=== PATIENT | female | born 1940 | race Caucasian/White ===

== ENCOUNTER 2020-05-05 12:15 | Inpatient (IN) ==
[2020-05-05] MEDS ORDERED: SODIUM CHLORIDE 0.9% 1000ML 1,000 ML IV ONE (12:50)
[2020-05-05 13:08] LABS: Basophils # (auto) 0.03 K/uL (0-0.2); Basophils % (auto) 0.5 %; Eosinophils # (auto) 0.16 K/uL (0-0.5); Eosinophils % (auto) 2.4 %; Hematocrit (blood only) 43.7 % (37-47); Hemoglobin 15.5 g/dL (12.0-16.0); Immature Granulocytes # (auto) 0.01 K/uL (0.00-0.02); Immature Granulocytes % (auto) 0.2 %; Lymphocytes # (auto) 1.78 K/uL (1.2-3.4); Lymphocytes % (auto) 26.7 %; Mean Corpuscular Hemoglobin 32.8 pg (25-34); Mean Corpuscular Hgb Conc 35.5 g/dL (32-36); Mean Corpuscular Volume 92.4 fL (80-100); Mean Platelet Volume 12.4 fL (7.4-10.4); Monocytes # (auto) 0.42 K/uL (0.11-0.59); Monocytes % (auto) 6.3 %; Neutrophils # (auto) 4.26 K/uL (1.4-6.5); Neutrophils % (auto) 63.9 %; Platelet Count 157 K/uL (130-400); RDW Coefficient of Variation 12.2 % (11.5-14.5); RDW Standard Deviation 41.4 fL (36.4-46.3); Red Blood Count 4.73 M/uL (4.2-5.4); White Blood Count 6.66 K/uL (4.8-10.8)
[2020-05-05 13:21] LABS: Partial Thromboplastin Ratio 0.9; Partial Thromboplastin Time 24.2 Seconds (21.0-31.0); Prothrombin Time 10.9 Seconds (9.0-12.0)
--- NOTE | 2020-05-05 13:23 | XRay Report ---
XR chest 1V portable CLINICAL HISTORY: SEPSIS COMPARISON STUDY: No previous studies for comparison. FINDINGS: The heart is mildly enlarged. There is no failure. There is no focal pulmonary consolidatio n. There are no pleural effusions. A linear opacity at the left lung base likely represents subsegmen lisa atelectasis.[ IMPRESSION: No active disease in the chest. ACT 112: Negative or not required by law. Electronically signed by: James Almendarez M.D. 05/05/2020 1:21 PM
[2020-05-05 13:24] LABS: Base Excess VBG 3.1 mEq/L; Oxygen Saturation VBG 61.3 %; pH VBG 7.39 (7.36-7.41)
[2020-05-05 13:25] LABS: Alanine Aminotransferase 33 U/L (12-78); Albumin Globulin Ratio 0.9 (0.9-2); Albumin Level 3.7 gm/dl (3.4-5.0); Alkaline Phosphatase 207 U/L (45-117); Aspartate Aminotransferase 21 U/L (15-37); BUN Creatinine Ratio 18.4 (10-20); Bilirubin,Total 0.9 mg/dl (0.2-1); Blood Urea Nitrogen 38 mg/dl (7-18); Calcium 9.5 mg/dl (8.5-10.1); Carbon Dioxide 28 mmol/L (21-32); Chloride 95 mmol/L (98-107); Creatinine Clr Calc Pharmacy 26.3 ml/min; Est GFR (African American) 26.3; Est GFR (Non-African American) 22.7; Globulin 3.9 gm/dl (2.5-4.0); Glucose 673 mg/dl (70-99); Potassium 4.2 mmol/L (3.5-5.1); Sodium 133 mmol/L (136-145); Total Protein 7.6 gm/dl (6.4-8.2); Troponin I < 0.015 ng/ml (0-0.045)
[2020-05-05 13:31] LABS: iSTAT Creatinine 1.6 mg/dl (0.6-1.3); iSTAT Hemoglobin 14.6 g/dl (12.0-16.0); iSTAT Ionized Calcium 1.16 mmol/l (1.12-1.32); iSTAT Potassium 4.3 mmol/L (3.3-5.0)
--- NOTE | 2020-05-05 13:40 | CT Scan Report ---
CT head/brain wo con CLINICAL HISTORY: 79 years-old Female with ams. Acutely altered mental status TECHNIQUE: Multiple axial CT images of the head were obtained without contrast. A dose lowering tech nique was utilized adhering to the principles of ALARA. CT DOSE: 601.98 mGy.cm COMPARISON: None. FINDINGS: No acute intracranial hemorrhage, midline shift, intracranial mass, hydrocephalus, territorial ischem ia or abnormal extra-axial collection. Age-related involutional changes. Patchy white matter hypodens ities suggest chronic microvascular ischemic disease. The calvarium is intact. Bilateral lens replacement. The paranasal sinuses, mastoid air cells, and mi ddle ear cavities are clear. IMPRESSION: No acute intracranial abnormality. ACT 112: Negative or not required by law. The above report was generated using voice recognition software. It may contain grammatical, syntax o r spelling errors. Electronically signed by: Wei Valencia M.D. 05/05/2020 1:38 PM
--- NOTE | 2020-05-05 13:52 | Emergency Department Note ---
History of Present Illness General Chief complaint: Hyperglycemia Stated complaint: Hyperglycemia/AMS Time Seen by Provider: 05/05/20 12:37 History of Present Illness Provider complaint: Altered mental status hyperglycemia Onset (ago): day(s) 1 Location: head Maximum Pain Intensity: 5 Current Pain Intensity: 0 Associated symptoms: + confusion 79-year-old female presents to the emergency department for hyperglycemia and altered mental status. Per EMS patient was found disoriented and walking around [facility]. Patient states she was there with her family who supposed to get a procedure done agrees with and then she became confused and was not sure where she was. Patient reported a mild headache that is since resolved. She denies any fevers, chest pain, difficulty breathing, falls, hematuria, dysuria melena hematochezia loss of taste or smell. Home Medications Home Medications Medication Instructions Recorded Confirmed Type albuterol sulfate [Ventolin HFA] 2 puff INHALATION Q4H PRN 05/05/20 05/05/20 History aspirin [Aspirin Low Dose] 81 mg PO DAILY 05/05/20 05/05/20 History atorvastatin 40 mg PO DAILY 05/05/20 05/05/20 History clotrimazole 1 appful VAGINAL DAILY 05/05/20 05/05/20 History fluticasone propion-salmeterol 1 inh INHALATION Q12H 05/05/20 05/05/20 History fluticasone propionate [Flonase 2 spray INTRANASAL DAILY 05/05/20 05/05/20 History Allergy Relief] furosemide 60 mg PO DAILY 05/05/20 05/05/20 History gabapentin 300 mg PO TID 05/05/20 05/05/20 History insulin glargine [Lantus Solostar 30 unit SUBCUT 05/05/20 05/05/20 History U-100 Insulin] liraglutide [Victoza 3-Sharath] 1.8 mg SUBCUT DAILY 05/05/20 05/05/20 History lisinopril 40 mg PO DAILY 05/05/20 05/05/20 History loratadine 10 mg PO DAILY 05/05/20 05/05/20 History metoprolol succinate 25 mg PO DAILY 05/05/20 05/05/20 History montelukast 10 mg PO HS 05/05/20 05/05/20 History omeprazole 20 mg PO DAILY 05/05/20 05/05/20 History paroxetine HCl 10 mg PO QAM 05/05/20 05/05/20 History Allergies Allergy/AdvReac Type Severity Reaction Status Date / Time latex AdvReac Unknown Unverified 05/05/20 14:13 Past Med/Surg History Medical History (Updated 05/05/20 @ 17:03 by Alexandra Thomason PA-C) Accidental drug overdose Asthma CKD (chronic kidney disease) stage 3, GFR 30-59 ml/min HLD (hyperlipidemia) HTN (hypertension) IDDM (insulin dependent diabetes mellitus) Obesity IAS on CPAP Surgical History History of appendectomy History of laminectomy S/P knee replacement Family History Other Depression Kidney disease Social History Smoking Status: Never smoker Feels Safe at Home: Yes Review of Systems A total of 10 systems reviewed and were otherwise negative Physical Exam Vital Signs Vital Signs - 24 hr 05/05/20 12:23 05/05/20 12:27 05/05/20 12:36 Temperature 36.9 C Temperature Source Oral Pulse Rate 88 Pulse Rate from SpO2 Sensor 88 Respiratory Rate 20 18 Respiratory Effort / Characteristics Non-Labored Spontaneous Respiratory Depth Normal Respiratory Pattern Regular Blood Pressure 112/68 130/79 Blood Pressure Mean 85 96 Blood Pressure Position Sitting Pulse Oximetry 93 92 96 Oxygen Delivery Method Room Air Room Air Nasal Cannula Oxygen Flow Rate 88 Sepsis Recent Fever Within 48 Hours No Sepsis New/Unexplained Change in Mental Status Yes Sepsis Action Taken by Nursing No Action Required Oxygen Flow Rate - Titration 2 05/05/20 13:01 05/05/20 13:38 05/05/20 13:49 Temperature Temperature Source Pulse Rate 73 77 Pulse Rate from SpO2 Sensor 78 Respiratory Rate 16 17 Respiratory Effort / Characteristics Non-Labored Respiratory Depth Respiratory Pattern Blood Pressure 127/57 L 135/65 Blood Pressure Mean 69 91 Blood Pressure Position Pulse Oximetry 95 98 96 Oxygen Delivery Method Nasal Cannula Nasal Cannula Oxygen Flow Rate 2 2 Sepsis Recent Fever Within 48 Hours Sepsis New/Unexplained Change in Mental Status Sepsis Action Taken by Nursing Oxygen Flow Rate - Titration 05/05/20 14:02 05/05/20 14:31 05/05/20 15:43 Temperature Temperature Source Pulse Rate 77 72 81 Pulse Rate from SpO2 Sensor 77 71 79 Respiratory Rate 20 15 19 Respiratory Effort / Characteristics Respiratory Depth Respiratory Pattern Blood Pressure 96/54 L 91/45 L 117/87 Blood Pressure Mean 77 74 104 Blood Pressure Position Pulse Oximetry 93 95 95 Oxygen Delivery Method Nasal Cannula Oxygen Flow Rate 2 Sepsis Recent Fever Within 48 Hours Sepsis New/Unexplained Change in Mental Status Sepsis Action Taken by Nursing Oxygen Flow Rate - Titration 05/05/20 16:01 Temperature Temperature Source Pulse Rate 75 Pulse Rate from SpO2 Sensor 74 Respiratory Rate 16 Respiratory Effort / Characteristics Respiratory Depth Respiratory Pattern Blood Pressure 143/68 H Blood Pressure Mean 117 Blood Pressure Position Pulse Oximetry 99 Oxygen Delivery Method Oxygen Flow Rate Sepsis Recent Fever Within 48 Hours Sepsis New/Unexplained Change in Mental Status Sepsis Action Taken by Nursing Oxygen Flow Rate - Titration Physical Exam GENERAL: She is oriented to person, place, and time. She appears well-developed and well-nourished. She does not appear distressed. HENT: Exam performed. -Head: Normocephalic and atraumatic. -Right Ear: External ear normal. No mastoid tenderness. -Left Ear: External ear normal. No mastoid tenderness. -Mouth/Throat: The oropharynx is clear and moist. No trismus in the jaw. No dental abscesses or uvula swelling. No oropharyngeal exudate or tonsillar abscesses. EYES: Conjunctivae and EOM are normal. Pupils are equal, round, and reactive to light. Right eye exhibits no discharge. Left eye exhibits no discharge. No scleral icterus. NECK: Normal range of motion. Neck supple. No JVD present. No spinous process tenderness present. No carotid bruit present. No rigidity. No tracheal deviation and normal range of motion present. No Brudzinski's sign and no Kernig's sign noted. CV: Normal rate, regular rhythm, normal heart sounds and intact distal pulses. There is no peripheral edema. Palpable radial pulses bue. PULM/CHEST: Effort normal and breath sounds normal. No respiratory distress. No stridor. She has no wheezes. She has no rales. -Chest Wall: She exhibits no tenderness. ABD: The abdomen is soft. Bowel sounds are normal. She has no distension. No mass is present. There is no tenderness. There is no rebound, no guarding, no Saavedra's sign and no tenderness at McBurney's point. Rovsig negative MUSC/SKEL: Normal range of motion. There is no peripheral edema, tenderness or deformity. LYMPH: No cervical adenopathy. NEURO: She is alert and oriented to person, place, and time. She has normal strength. No cranial nerve deficit or sensory deficit. Coordination and gait normal. GCS eye subscore is 4. GCS verbal subscore is 5. GCS motor subscore is 6. Cerebellar tests wnl. SKIN: Skin is warm and dry. She is not diaphoretic. PSYCH: She has a normal mood and affect. Behavior is normal. Judgment and t hought content normal. Course Course 1237: The patient was evaluated in room C4. A complete history and physical exam was performed. Patient was placed on school bus monitor and found to be hypoxic on room air. 3 L of supplemental oxygen were applied via nasal cannula which improved her oxygen saturation. Cardiac monitoring: An order was placed for continuous cardiac monitoring. The monitor shows a rate of 80 with sinus rhythm 1454: Labs show a creatinine of 2.06. Glucose 673. No evidence of DKA or HHS. Osmolar gap and anion gap are 10 and within normal limits. Patient continues to require supplemental oxygen via nasal cannula. She will be admitted to the [facility] team. Discussed with Alexandra Thomason who stated to admit to Dr. Lucas Administered Medications Sodium Chloride (Nss 1000ml) 1,000 mls @ 125 mls/hr IV .Q8H ROBY Stop: 06/04/20 14:44 Last Admin: 05/05/20 15:38 Dose: 125 mls/hr Documented by: [id number] Discontinued Medications Sodium Chloride (Nss 1000ml) 1,000 mls @ 999 mls/hr IV .Q1H1M ONE Stop: 05/05/20 13:50 Last Infusion: 05/05/20 14:04 Dose: 0 mls/hr Documented by: [id number] Admin: 05/05/20 13:02 Dose: 999 mls/hr Documented by: [id number] Medical Decision Making Laboratory Data Result diagrams: 05/05/20 12:32 05/05/20 12:32 Lab Results 05/05/20 05/05/20 05/05/20 Range/Units 12:32 12:32 12:32 WBC 6.66 (4.8-10.8) K/uL RBC 4.73 (4.2-5.4) M/uL Hgb 15.5 (12.0-16.0) g/dL POC Hgb (12.0-16.0) g/dl Hct 43.7 (37-47) % POC Hct (37-47) % MCV 92.4 (80-100) fL MCH 32.8 (25-34) pg MCHC 35.5 (32-36) g/dL RDW Std Deviation 41.4 (36.4-46.3) fL RDW Coeff of Andrzej 12.2 (11.5-14.5) % Plt Count 157 (130-400) K/uL MPV 12.4 H (7.4-10.4) fL Immature Gran % (Auto) 0.2 % Neut % (Auto) 63.9 % Lymph % (Auto) 26.7 % [place] % (Auto) 6.3 % Eos % (Auto) 2.4 % Baso % (Auto) 0.5 % Neut # (Auto) 4.26 (1.4-6.5) K/uL Lymph # (Auto) 1.78 (1.2-3.4) K/uL [place] # (Auto) 0.42 (0.11-0.59) K/uL Eos # (Auto) 0.16 (0-0.5) K/uL Baso # (Auto) 0.03 (0-0.2) K/uL Immature Gran # (Auto) 0.01 (0.00-0.02) K/uL PT 10.9 (9.0-12.0) Seconds INR 1.0 (0.9-1.1) APTT 24.2 (21.0-31.0) Seconds PTT Ratio 0.9 VBG pH (7.36-7.41) VBG pCO2 (38-50) mmHg VBG pO2 mmHg VBG HCO3 mmol/L VBG O2 Saturation % VBG Base Excess mEq/L Barometric Pressure mm/Hg POC Sodium (135-144) mmol/L Sodium 133 L (136-145) mmol/L POC Potassium (3.3-5.0) mmol/L Potassium 4.2 (3.5-5.1) mmol/L POC Chloride (101-112) mmol/L Chloride 95 L (98-107) mmol/L Carbon Dioxide 28 (21-32) mmol/L POC Total CO2 (24-31) mmol/L Anion Gap 10.0 (3-11) POC Anion Gap (16-25) mmol/L POC BUN (7-18) mg/dl BUN 38 H (7-18) mg/dl Creatinine 2.06 H (0.6-1.2) mg/dl POC Creatinine (0.6-1.3) mg/dl Est Cr Clr Drug Dosing 26.3 ml/min Est GFR ( Amer) 26.3 Est GFR (Non-Af Amer) 22.7 BUN/Creatinine Ratio 18.4 (10-20) Glucose 673 H* (70-99) mg/dl POC Glucose (70-99) mg/dl POC Glucose (other) (70-99) mg/dl Osmolality (280-300) mOsm/kg Lactate (0.4-2.0) mmol/L Calcium 9.5 (8.5-10.1) mg/dl POC Ioniz Calcium Livan (1.12-1.32) mmol/l Magnesium 2.0 (1.8-2.4) mg/dl Total Bilirubin 0.9 (0.2-1) mg/dl AST 21 (15-37) U/L ALT 33 (12-78) U/L Alkaline Phosphatase 207 H (45-117) U/L Ammonia (11-32) umol/L Troponin I < 0.015 (0-0.045) ng/ml Total Protein 7.6 (6.4-8.2) gm/dl Albumin 3.7 (3.4-5.0) gm/dl Globulin 3.9 (2.5-4.0) gm/dl Albumin/Globulin Ratio 0.9 (0.9-2) Beta-Hydroxybutyric Acd 2.20 (0.2-2.81) mg/dl Procalcitonin (0-0.5) ng/ml Urine Color Urine Appearance (Clear) Urine pH (4.5-7.5) Ur Specific [place] (1.000-1.030) Urine Protein (Negative) Urine Glucose (UA) (Negative) Urine Ketones (Negative) Urine Blood (Negative) Urine Nitrite (Negative) Urine Bilirubin (Negative) Urine Urobilinogen (Negative) Ur Leukocyte Esterase (Negative) Urine WBC (Auto) (0-5) /hpf Urine RBC (Auto) (0-4) /hpf U Hyaline Cast (Auto) (0-5) /lpf U Epithel Cells (Auto) (0-5) /lpf Urine Bacteria (Auto) (Negative) Urine Opiates Screen (Neg) Ur Methadone, Qual (Neg) Urine Barbiturates (Neg) Ur Phencyclidine (PCP) (Neg) U Amphetamin/Meth Scrn (Neg) MDMA (Ecstasy) Screen (Neg) U Benzodiazepines Scrn (Neg) Ur Cocaine Metabolite (Neg) U Marijuana (THC) Screen (Neg) Ethyl Alcohol mg/dL (0-3) mg/dl 05/05/20 05/05/20 05/05/20 Range/Units 12:32 12:32 13:11 WBC (4.8-10.8) K/uL RBC (4.2-5.4) M/uL Hgb (12.0-16.0) g/dL POC Hgb (12.0-16.0) g/dl Hct (37-47) % POC Hct (37-47) % MCV (80-100) fL MCH (25-34) pg MCHC (32-36) g/dL RDW Std Deviation (36.4-46.3) fL RDW Coeff of Andrzej (11.5-14.5) % Plt Count (130-400) K/uL MPV (7.4-10.4) fL Immature Gran % (Auto) % Neut % (Auto) % Lymph % (Auto) % [place] % (Auto) % Eos % (Auto) % Baso % (Auto) % Neut # (Auto) (1.4-6.5) K/uL Lymph # (Auto) (1.2-3.4) K/uL [place] # (Auto) (0.11-0.59) K/uL Eos # (Auto) (0-0.5) K/uL Baso # (Auto) (0-0.2) K/uL Immature Gran # (Auto) (0.00-0.02) K/uL PT (9.0-12.0) Seconds INR (0.9-1.1) APTT (21.0-31.0) Seconds PTT Ratio VBG pH (7.36-7.41) VBG pCO2 (38-50) mmHg VBG pO2 mmHg VBG HCO3 mmol/L VBG O2 Saturation % VBG Base Excess mEq/L Barometric Pressure mm/Hg POC Sodium (135-144) mmol/L Sodium (136-145) mmol/L POC Potassium (3.3-5.0) mmol/L Potassium (3.5-5.1) mmol/L POC Chloride (101-112) mmol/L Chloride (98-107) mmol/L Carbon Dioxide (21-32) mmol/L POC Total CO2 (24-31) mmol/L Anion Gap (3-11) POC Anion Gap (16-25) mmol/L POC BUN (7-18) mg/dl BUN (7-18) mg/dl Creatinine (0.6-1.2) mg/dl POC Creatinine (0.6-1.3) mg/dl Est Cr Clr Drug Dosing ml/min Est GFR ( Amer) Est GFR (Non-Af Amer) BUN/Creatinine Ratio (10-20) Glucose (70-99) mg/dl POC Glucose (70-99) mg/dl POC Glucose (other) (70-99) mg/dl Osmolality 327 H (280-300) mOsm/kg Lactate 2.8 H* (0.4-2.0) mmol/L Calcium (8.5-10.1) mg/dl POC Ioniz Calcium Livan (1.12-1.32) mmol/l Magnesium (1.8-2.4) mg/dl Total Bilirubin (0.2-1) mg/dl AST (15-37) U/L ALT (12-78) U/L Alkaline Phosphatase (45-117) U/L Ammonia (11-32) umol/L Troponin I (0-0.045) ng/ml Total Protein (6.4-8.2) gm/dl Albumin (3.4-5.0) gm/dl Globulin (2.5-4.0) gm/dl Albumin/Globulin Ratio (0.9-2) Beta-Hydroxybutyric Acd (0.2-2.81) mg/dl Procalcitonin 0.10 (0-0.5) ng/ml Urine Color Urine Appearance (Clear) Urine pH (4.5-7.5) Ur Specific [place] (1.000-1.030) Urine Protein (Negative) Urine Glucose (UA) (Negative) Urine Ketones (Negative) Urine Blood (Negative) Urine Nitrite (Negative) Urine Bilirubin (Negative) Urine Urobilinogen (Negative) Ur Leukocyte Esterase (Negative) Urine WBC (Auto) (0-5) /hpf Urine RBC (Auto) (0-4) /hpf U Hyaline Cast (Auto) (0-5) /lpf U Epithel Cells (Auto) (0-5) /lpf Urine Bacteria (Auto) (Negative) Urine Opiates Screen (Neg) Ur Methadone, Qual (Neg) Urine Barbiturates (Neg) Ur Phencyclidine (PCP) (Neg) U Amphetamin/Meth Scrn (Neg) MDMA (Ecstasy) Screen (Neg) U Benzodiazepines Scrn (Neg) Ur Cocaine Metabolite (Neg) U Marijuana (THC) Screen (Neg) Ethyl Alcohol mg/dL (0-3) mg/dl 05/05/20 05/05/20 05/05/20 Range/Units 13:11 13:11 13:14 WBC (4.8-10.8) K/uL RBC (4.2-5.4) M/uL Hgb (12.0-16.0) g/dL POC Hgb (12.0-16.0) g/dl Hct (37-47) % POC Hct (37-47) % MCV (80-100) fL MCH (25-34) pg MCHC (32-36) g/dL RDW Std Deviation (36.4-46.3) fL RDW Coeff of Andrzej (11.5-14.5) % Plt Count (130-400) K/uL MPV (7.4-10.4) fL Immature Gran % (Auto) % Neut % (Auto) % Lymph % (Auto) % [place] % (Auto) % Eos % (Auto) % Baso % (Auto) % Neut # (Auto) (1.4-6.5) K/uL Lymph # (Auto) (1.2-3.4) K/uL [place] # (Auto) (0.11-0.59) K/uL Eos # (Auto) (0-0.5) K/uL Baso # (Auto) (0-0.2) K/uL Immature Gran # (Auto) (0.00-0.02) K/uL PT (9.0-12.0) Seconds INR (0.9-1.1) APTT (21.0-31.0) Seconds PTT Ratio VBG pH 7.39 (7.36-7.41) VBG pCO2 49 (38-50) mmHg VBG pO2 34 mmHg VBG HCO3 29 mmol/L VBG O2 Saturation 61.3 % VBG Base Excess 3.1 mEq/L Barometric Pressure 733.9 mm/Hg POC Sodium (135-144) mmol/L Sodium (136-145) mmol/L POC Potassium (3.3-5.0) mmol/L Potassium (3.5-5.1) mmol/L POC Chloride (101-112) mmol/L Chloride (98-107) mmol/L Carbon Dioxide (21-32) mmol/L POC Total CO2 (24-31) mmol/L Anion Gap (3-11) POC Anion Gap (16-25) mmol/L POC BUN (7-18) mg/dl BUN (7-18) mg/dl Creatinine (0.6-1.2) mg/dl POC Creatinine (0.6-1.3) mg/dl Est Cr Clr Drug Dosing ml/min Est GFR ( Amer) Est GFR (Non-Af Amer) BUN/Creatinine Ratio (10-20) Glucose (70-99) mg/dl POC Glucose (70-99) mg/dl POC Glucose (other) (70-99) mg/dl Osmolality (280-300) mOsm/kg Lactate (0.4-2.0) mmol/L Calcium (8.5-10.1) mg/dl POC Ioniz Calcium Livan (1.12-1.32) mmol/l Magnesium (1.8-2.4) mg/dl Total Bilirubin (0.2-1) mg/dl AST (15-37) U/L ALT (12-78) U/L Alkaline Phosphatase (45-117) U/L Ammonia 18.2 (11-32) umol/L Troponin I (0-0.045) ng/ml Total Protein (6.4-8.2) gm/dl Albumin (3.4-5.0) gm/dl Globulin (2.5-4.0) gm/dl Albumin/Globulin Ratio (0.9-2) Beta-Hydroxybutyric Acd (0.2-2.81) mg/dl Procalcitonin (0-0.5) ng/ml Urine Color Urine Appearance (Clear) Urine pH (4.5-7.5) Ur Specific [place] (1.000-1.030) Urine Protein (Negative) Urine Glucose (UA) (Negative) Urine Ketones (Negative) Urine Blood (Negative) Urine Nitrite (Negative) Urine Bilirubin (Negative) Urine Urobilinogen (Negative) Ur Leukocyte Esterase (Negative) Urine WBC (Auto) (0-5) /hpf Urine RBC (Auto) (0-4) /hpf U Hyaline Cast (Auto) (0-5) /lpf U Epithel Cells (Auto) (0-5) /lpf Urine Bacteria (Auto) (Negative) Urine Opiates Screen (Neg) Ur Methadone, Qual (Neg) Urine Barbiturates (Neg) Ur Phencyclidine (PCP) (Neg) U Amphetamin/Meth Scrn (Neg) MDMA (Ecstasy) Screen (Neg) U Benzodiazepines Scrn (Neg) Ur Cocaine Metabolite (Neg) U Marijuana (THC) Screen (Neg) Ethyl Alcohol mg/dL < 3.0 (0-3) mg/dl 05/05/20 05/05/20 05/05/20 Range/Units 13:18 13:49 13:49 WBC (4.8-10.8) K/uL RBC (4.2-5.4) M/uL Hgb (12.0-16.0) g/dL POC Hgb 14.6 (12.0-16.0) g/dl Hct (37-47) % POC Hct 43 (37-47) % MCV (80-100) fL MCH (25-34) pg MCHC (32-36) g/dL RDW Std Deviation (36.4-46.3) fL RDW Coeff of Andrzej (11.5-14.5) % Plt Count (130-400) K/uL MPV (7.4-10.4) fL Immature Gran % (Auto) % Neut % (Auto) % Lymph % (Auto) % [place] % (Auto) % Eos % (Auto) % Baso % (Auto) % Neut # (Auto) (1.4-6.5) K/uL Lymph # (Auto) (1.2-3.4) K/uL [place] # (Auto) (0.11-0.59) K/uL Eos # (Auto) (0-0.5) K/uL Baso # (Auto) (0-0.2) K/uL Immature Gran # (Auto) (0.00-0.02) K/uL PT (9.0-12.0) Seconds INR (0.9-1.1) APTT (21.0-31.0) Seconds PTT Ratio VBG pH (7.36-7.41) VBG pCO2 (38-50) mmHg VBG pO2 mmHg VBG HCO3 mmol/L VBG O2 Saturation % VBG Base Excess mEq/L Barometric Pressure mm/Hg POC Sodium 133 L (135-144) mmol/L Sodium (136-145) mmol/L POC Potassium 4.3 (3.3-5.0) mmol/L Potassium (3.5-5.1) mmol/L POC Chloride 95 L (101-112) mmol/L Chloride (98-107) mmol/L Carbon Dioxide (21-32) mmol/L POC Total CO2 26 (24-31) mmol/L Anion Gap (3-11) POC Anion Gap 17.0 (16-25) mmol/L POC BUN 38 H (7-18) mg/dl BUN (7-18) mg/dl Creatinine (0.6-1.2) mg/dl POC Creatinine 1.6 H (0.6-1.3) mg/dl Est Cr Clr Drug Dosing ml/min Est GFR ( Amer) Est GFR (Non-Af Amer) BUN/Creatinine Ratio (10-20) Glucose (70-99) mg/dl POC Glucose (70-99) mg/dl POC Glucose (other) 633 H* (70-99) mg/dl Osmolality (280-300) mOsm/kg Lactate (0.4-2.0) mmol/L Calcium (8.5-10.1) mg/dl POC Ioniz Calcium Livan 1.16 (1.12-1.32) mmol/l Magnesium (1.8-2.4) mg/dl Total Bilirubin (0.2-1) mg/dl AST (15-37) U/L ALT (12-78) U/L Alkaline Phosphatase (45-117) U/L Ammonia (11-32) umol/L Troponin I (0-0.045) ng/ml Total Protein (6.4-8.2) gm/dl Albumin (3.4-5.0) gm/dl Globulin (2.5-4.0) gm/dl Albumin/Globulin Ratio (0.9-2) Beta-Hydroxybutyric Acd (0.2-2.81) mg/dl Procalcitonin (0-0.5) ng/ml Urine Color Yellow Urine Appearance Clear (Clear) Urine pH 5.5 (4.5-7.5) Ur Specific [place] 1.018 (1.000-1.030) Urine Protein Negative (Negative) Urine Glucose (UA) 3+ H (Negative) Urine Ketones Negative (Negative) Urine Blood 2+ H (Negative) Urine Nitrite Negative (Negative) Urine Bilirubin Negative (Negative) Urine Urobilinogen Negative (Negative) Ur Leukocyte Esterase 1+ H (Negative) Urine WBC (Auto) 5-10 H (0-5) /hpf Urine RBC (Auto) 10-30 H (0-4) /hpf U Hyaline Cast (Auto) 0 (0-5) /lpf U Epithel Cells (Auto) >30 H (0-5) /lpf Urine Bacteria (Auto) Negative (Negative) Urine Opiates Screen Neg (Neg) Ur Methadone, Qual Neg (Neg) Urine Barbiturates Neg (Neg) Ur Phencyclidine (PCP) Neg (Neg) U Amphetamin/Meth Scrn Neg (Neg) MDMA (Ecstasy) Screen Neg (Neg) U Benzodiazepines Scrn Neg (Neg) Ur Cocaine Metabolite Neg (Neg) U Marijuana (THC) Screen Neg (Neg) Ethyl Alcohol mg/dL (0-3) mg/dl 05/05/20 05/05/20 Range/Units 15:06 15:34 WBC (4.8-10.8) K/uL RBC (4.2-5.4) M/uL Hgb (12.0-16.0) g/dL POC Hgb (12.0-16.0) g/dl Hct (37-47) % POC Hct (37-47) % MCV (80-100) fL MCH (25-34) pg MCHC (32-36) g/dL RDW Std Deviation (36.4-46.3) fL RDW Coeff of Andrzej (11.5-14.5) % Plt Count (130-400) K/uL MPV (7.4-10.4) fL Immature Gran % (Auto) % Neut % (Auto) % Lymph % (Auto) % [place] % (Auto) % Eos % (Auto) % Baso % (Auto) % Neut # (Auto) (1.4-6.5) K/uL Lymph # (Auto) (1.2-3.4) K/uL [place] # (Auto) (0.11-0.59) K/uL Eos # (Auto) (0-0.5) K/uL Baso # (Auto) (0-0.2) K/uL Immature Gran # (Auto) (0.00-0.02) K/uL PT (9.0-12.0) Seconds INR (0.9-1.1) APTT (21.0-31.0) Seconds PTT Ratio VBG pH (7.36-7.41) VBG pCO2 (38-50) mmHg VBG pO2 mmHg VBG HCO3 mmol/L VBG O2 Saturation % VBG Base Excess mEq/L Barometric Pressure mm/Hg POC Sodium (135-144) mmol/L Sodium (136-145) mmol/L POC Potassium (3.3-5.0) mmol/L Potassium (3.5-5.1) mmol/L POC Chloride (101-112) mmol/L Chloride (98-107) mmol/L Carbon Dioxide (21-32) mmol/L POC Total CO2 (24-31) mmol/L Anion Gap (3-11) POC Anion Gap (16-25) mmol/L POC BUN (7-18) mg/dl BUN (7-18) mg/dl Creatinine (0.6-1.2) mg/dl POC Creatinine (0.6-1.3) mg/dl Est Cr Clr Drug Dosing ml/min Est GFR ( Amer) Est GFR (Non-Af Amer) BUN/Creatinine Ratio (10-20) Glucose (70-99) mg/dl POC Glucose 572 H* (70-99) mg/dl POC Glucose (other) (70-99) mg/dl Osmolality (280-300) mOsm/kg Lactate 1.1 (0.4-2.0) mmol/L Calcium (8.5-10.1) mg/dl POC Ioniz Calcium Livan (1.12-1.32) mmol/l Magnesium (1.8-2.4) mg/dl Total Bilirubin (0.2-1) mg/dl AST (15-37) U/L ALT (12-78) U/L Alkaline Phosphatase (45-117) U/L Ammonia (11-32) umol/L Troponin I (0-0.045) ng/ml Total Protein (6.4-8.2) gm/dl Albumin (3.4-5.0) gm/dl Globulin (2.5-4.0) gm/dl Albumin/Globulin Ratio (0.9-2) Beta-Hydroxybutyric Acd (0.2-2.81) mg/dl Procalcitonin (0-0.5) ng/ml Urine Color Urine Appearance (Clear) Urine pH (4.5-7.5) Ur Specific [place] (1.000-1.030) Urine Protein (Negative) Urine Glucose (UA) (Negative) Urine Ketones (Negative) Urine Blood (Negative) Urine Nitrite (Negative) Urine Bilirubin (Negative) Urine Urobilinogen (Negative) Ur Leukocyte Esterase (Negative) Urine WBC (Auto) (0-5) /hpf Urine RBC (Auto) (0-4) /hpf U Hyaline Cast (Auto) (0-5) /lpf U Epithel Cells (Auto) (0-5) /lpf Urine Bacteria (Auto) (Negative) Urine Opiates Screen (Neg) Ur Methadone, Qual (Neg) Urine Barbiturates (Neg) Ur Phencyclidine (PCP) (Neg) U Amphetamin/Meth Scrn (Neg) MDMA (Ecstasy) Screen (Neg) U Benzodiazepines Scrn (Neg) Ur Cocaine Metabolite (Neg) U Marijuana (THC) Screen (Neg) Ethyl Alcohol mg/dL (0-3) mg/dl Imaging Data Radiologist's Impression: CT head/brain wo con CLINICAL HISTORY: 79 years-old Female with ams. Acutely altered mental status TECHNIQUE: Multiple axial CT images of the head were obtained without contrast. A dose lowering technique was utilized adhering to the principles of ALARA. CT DOSE: 601.98 mGy.cm COMPARISON: None. FINDINGS: No acute intracranial hemorrhage, midline shift, intracranial mass, hydrocephalus, territorial ischemia or abnormal extra-axial collection. Age-rela ethan involutional changes. Patchy white matter hypodensities suggest chronic microvascular ischemic disease. The calvarium is intact. Bilateral lens replacement. The paranasal sinuses, mastoid air cells, and middle ear cavities are clear. IMPRESSION: No acute intracranial abnormality. ACT 112: Negative or not required by law. The above report was generated using voice recognition software. It may contain grammatical, syntax or spelling errors. Electronically signed by: Wei Valencia M.D. 05/05/2020 1:38 PM Dictated: 05/05/20 1336 Transcribed: 05/05/20 1336 XR chest 1V portable CLINICAL HISTORY: SEPSIS COMPARISON STUDY: No previous studies for comparison. FINDINGS: The heart is mildly enlarged. There is no failure. There is no focal pulmonary consolidation. There are no pleural effusions. A linear opacity at the left lung base likely represents subsegmental atelectasis.[ IMPRESSION: No active disease in the chest. ACT 112: Negative or not required by law. Electronically signed by: James Almendarez M.D. 05/05/2020 1:21 PM Dictated: 05/05/20 1321 Transcribed: 05/05/20 1321 ECG Data Indication: + altered mental status Rate (beats per minute): 82 Rhythm: + normal sinus ECG Intervals/blocks: + Normal QRS, + Normal LA and + Normal QT-c ECG ST segments: + Normal ST segments Additional Comments: T wave inversion in lead III, V3 and V4 [facility] Narrative 1237: The patient was evaluated in room C4. A complete history and physical exam was performed. Patient was placed on school bus monitor and found to be hypoxic on room air. 3 L of supplemental oxygen were applied via nasal cannula which improved her oxygen saturation. Cardiac monitoring: An order was placed for continuous cardiac monitoring. The monitor shows a rate of 80 with sinus rhythm 1454: Labs show a creatinine of 2.06. Glucose 673. No evidence of DKA or HHS. Osmolar gap and anion gap are 10 and within normal limits. Patient continues to require supplemental oxygen via nasal cannula. She will be admitted to the [facility] team. Discussed with Alexandra Thomason who stated to admit to Dr. Lucas Impression & Plan Hypoxia, CKD (chronic kidney disease) stage 3, GFR 30-59 ml/min, Lactic acidemia Discharge Plan Visit Data Chief Complaint: Hyperglycemia Stated Complaint: Hyperglycemia/AMS ED Provider: Manuel Hussein Discharge Problem: Hypoxia, CKD (chronic kidney disease) stage 3, GFR 30-59 ml/min, Lactic acidemia Patient Disposition: Admitted As Inpatient Discharge Instructions Interventions: ED Discharge Assessment Last Done: 05/05/20 17:03 Forms Stand Alone Forms: My [facility] [employer] Prescriptions Prescriptions: No Action furosemide 40 mg tablet 60 mg PO DAILY RF: 0 atorvastatin 40 mg tablet 40 mg PO DAILY RF: 0 paroxetine HCl 10 mg tablet 10 mg PO QAM RF: 0 clotrimazole 1 % Cream 1 appful VAGINAL DAILY RF: 0 aspirin [Aspirin Low Dose] 81 mg Tablet,Delayed Release (Dr/Ec) 81 mg PO DAILY RF: 0 fluticasone propion-salmeterol 500-50 mcg/dose blister with device 1 inh INHALATION Q12H RF: 0 gabapentin 300 mg capsule 300 mg PO TID RF: 0 omeprazole 20 mg capsule,delayed release(DR/EC) 20 mg PO DAILY RF: 0 montelukast 10 mg tablet 10 mg PO HS RF: 0 metoprolol succinate 25 mg tablet extended release 24 hr 25 mg PO DAILY RF: 0 albuterol sulfate [Ventolin HFA] 90 mcg/actuation Hfa Aerosol Inhaler 2 puff INHALATION Q4H PRN (Reason: Dyspnea) RF: 0 lisinopril 40 mg tablet 40 mg PO DAILY RF: 0 fluticasone propionate [Flonase Allergy Relief] 50 mcg/actuation [place],Suspension 2 spray INTRANASAL DAILY RF: 0 loratadine 10 mg tablet 10 mg PO DAILY RF: 0 Lantus Solostar U-100 Insulin 100 unit/mL (3 mL) insulin pen 30 unit SUBCUT HS RF: 0 Victoza 3-Sharath 0.6 mg/0.1 mL (18 mg/3 mL) pen injector 1.8 mg SUBCUT DAILY RF: 0 Referrals Referrals: Silver Ramos DO [Primary Care Provider] -
[2020-05-05 14:04] LABS: Appearance Urine Clear (Clear); Bacteria Urine Automated Negative (Negative); Bilirubin Urine Negative (Negative); Blood Urine 2+ (Negative); Cast Urine Automated 0 /lpf (0-5); Color Urine Yellow; Epithelial Cell Urine Auto >30 /lpf (0-5); Glucose Urine UA 3+ (Negative); Ketones Urine Negative (Negative); Leukocyte Esterase Urine 1+ (Negative); Nitrite Urine Negative (Negative); Protein Urine Negative (Negative); Specific Gravity Urine 1.018 (1.000-1.030); Urobilinogen Urine Negative (Negative); pH Urine 5.5 (4.5-7.5)
[2020-05-05 14:34] LABS: Amphetamines+Metham, Urine Neg (Neg); Barbiturates, Urine Neg (Neg); Benzodiazepine, Urine Neg (Neg); Cocaine, Urine Neg (Neg); MDMA (Ecstacy), Urine Neg (Neg); Methadone, Urine Neg (Neg); Opiate, Urine Neg (Neg); Phencyclidine, Urine Neg (Neg)
[2020-05-05] MEDS ORDERED: SODIUM CHLORIDE 0.9% 1000ML 1,000 ML IV SCH (14:45)
--- NOTE | 2020-05-05 15:19 | History & Physical Report ---
Date of Service May 05, 2020 Assessment & Plan (1) Acute metabolic encephalopathy: (2) Hyperglycemia without ketosis: (3) Acute kidney injury superimposed on chronic kidney disease: Creatinine elevated 2.06 (creatinine ~1 a few months earlier and has been up-trending) -In setting of markedly worsening diabetes -Hold lisinopril and lasix. Reassess volume status in AM -Consider nephrology consult (4) Acute electrocardiogram changes: EKG performed during episode of delirium, seen by Dr. Schaefer. EKG with mild nonspecific repolarization changes in inferior lateral leads -No chest pain, initial troponin negative. Last 2D echo from 2016. Ordering repeat echo for updated baseline in setting of multiple risk factors (5) HTN (hypertension): Holding lisinopril and Lasix in setting of JOSÉ MIGUEL. 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 Wean O2 as tolerated- currently 99% on 2L with normal lung exam. Continue albuterol inh PRN, Singulair (7) HLD (hyperlipidemia): Continue statin DVT Ppx: SQ heparin Code status: FULL PCP: Rachel Dispo: Admitted to med surg with tele. Discharge planning ordered. Patient seen in collaboration with Dr. Cha. Please see addendum. History of Present Illness Chief Complaint: delirium and hyperglycemia, sent from [facility] Primary Care Provider: Silver Ramos, This is a 79yo F with a PMH of uncontrolled DM II on insulin, asthma, mood disorder, HTN and ISA on CPAP and other medical problems listed below who presents after episode of acute delirium and hyperglycemia [facility] earlier today. Patient accompanied family member to [facility] today and was going to get a drink of water when she appeared to be ill in appearance by a bystander and a rapid response was called. Dr. Schaefer responded to the scene and noted that patient had tremors confusion and diaphoresis on initial assessment. Fingerstick blood sugar was found to be around 600. Patient describes this episode as "an out of body experience" and has a hard time remembering all of the details. Denies any chest pain or shortness of breath at this time. EKG was performed, revealing sinus tachycardia at 110 bpm with mild nonspecific repolarization changes in inferior lateral leads. Family was not present during this episode. Patient was directed to [facility] by EMS for further work-up. Patient has had significant decline in health since February. At that time, patient's hemoglobin A1c was 9.1 with creatinine 1.0. Hemoglobin A1c last week was 14.1 and patient has elevated creatinine at 2.06 today. Was observed at [facility] in late March due to unintentional overdose of gabapentin after patient's pillbox was reorganized. Per discussion with , patient seems fatigued and more confused over the past month or so. He is now exclusively managing her medications and trying to encourage her to improve her diet. He states that they have spoken with case management about possible addition of home health since [place] hospitalization, but patient has refused this. Patient currently endorses feeling fatigued, foggy and more down than usual. Endorses feeling sad, hopeless and less interested in normal activities. Also feels anxious. Denies any suicidal ideation. No ligh theadedness, visual changes, chest pain, palpitations, shortness of breath, nausea, vomiting, abdominal pain, dysuria, diarrhea constipation. Allergies Allergy/AdvReac Type Severity Reaction Status Date / Time latex AdvReac Unknown Unverified 05/05/20 14:13 Home Medications Home Medications Medication Instructions Recorded Confirmed Type Lantus Solostar U-100 Insulin 30 unit SUBCUT HS 05/05/20 05/05/20 History Victoza 3-Sharath 1.8 mg SUBCUT DAILY 05/05/20 05/05/20 History albuterol sulfate [Ventolin HFA] 2 puff INHALATION Q4H PRN 05/05/20 05/05/20 History aspirin [Aspirin Low Dose] 81 mg PO DAILY 05/05/20 05/05/20 History atorvastatin 40 mg PO DAILY 05/05/20 05/05/20 History clotrimazole 1 appful VAGINAL DAILY 05/05/20 05/05/20 History fluticasone propion-salmeterol 1 inh INHALATION Q12H 05/05/20 05/05/20 History fluticasone propionate [Flonase 2 spray INTRANASAL DAILY 05/05/20 05/05/20 History Allergy Relief] gabapentin 300 mg PO TID 05/05/20 05/05/20 History loratadine 10 mg PO DAILY 05/05/20 05/05/20 History metoprolol succinate 25 mg PO DAILY 05/05/20 05/05/20 History montelukast 10 mg PO HS 05/05/20 05/05/20 History omeprazole 20 mg PO DAILY 05/05/20 05/05/20 History paroxetine HCl 10 mg PO QAM 05/05/20 05/05/20 History furosemide 40 mg PO DAILY #0 tab 05/08/20 05/05/20 Rx lisinopril 5 mg PO DAILY #30 tab 05/08/20 Rx Past Med/Surg History Medical History (Updated 05/09/20 @ 00:03 by Ashlyn Rodriguez) Accidental drug overdose CKD (chronic kidney disease) stage 3, GFR 30-59 ml/min Lactic acidemia Mood disorder ISA on CPAP Surgical History History of appendectomy History of laminectomy S/P knee replacement Family History Other Depression Kidney disease Social History Smoking Status: Unknown if ever smoked Hx Alcohol Use: No Hx Substance Use: No Preferred Language: Bangladeshi Communication Ability: Effective Front Edger Required: No Beliefs That Will Affect Care: None Current Living Situation: Spouse Feels Safe at Home: Yes Assistive Devices: CPAP Review of Systems Review of Systems: At least ten systems reviewed and negative except as noted in the HPI. Physical Exam Physical Exam: General Appearance: WD/WN, vitals as above, NAD, sitting up in bed, anxious, tremors (chronic) Head: normocephalic, atraumatic Eyes: normal inspection, PERRL, conjunctivae normal, anicteric sclerae ENT: external ear and nose normal, oropharynx normal Neck: normal visual inspection, trachea midline, no thyromegaly Respiratory: normal respiratory effort, lungs clear to auscultation, no wheeze, rales, rhonchi. No accessory muscle use Cardiovascular: regular rate, rhythm, no murmur, normal peripheral pulses, no BLE edema. Vessels: no JVD Chest: normal inspection of chest Abdomen/GI: normal bowel sounds, soft, nontender, no hepatosplenomegaly Extremities/Musculoskeletal: no cyanosis or clubbing, extremities motor strength 5/5 Neurologic: PERRL, EOMI, accommodation nl, no face palsy, no dysarthria, CN's II-XI intact bilaterally and moves all extremities Psychiatric: A+Ox3, anxious Skin: no rashes, normal color, warm/dry Results & Data Results & Data ([facility]) Vital Signs (Past 12 Hours) Vital Signs Temp Pulse Resp BP Pulse Ox 05/05/20 14:31 72 15 91/45 L 95 05/05/20 14:02 77 20 96/54 L 93 05/05/20 13:49 77 17 135/65 96 05/05/20 13:38 73 16 127/57 L 98 05/05/20 13:01 95 05/05/20 12:36 96 05/05/20 12:27 36.9 C 18 130/79 92 05/05/20 12:23 88 20 112/68 93 Laboratory Results Short CBC 05/05/20 05/05/20 Range/Units 12:32 12:32 WBC 6.66 (4.8-10.8) K/uL Hgb 15.5 (12.0-16.0) g/dL Hct 43.7 (37-47) % Plt Count 157 (130-400) K/uL Carbon Dioxide 28 (21-32) mmol/L BMP 05/05/20 12:32 Sodium 133 L Potassium 4.2 Chloride 95 L Carbon Dioxide 28 BUN 38 H Creatinine 2.06 H Glucose 673 H* Calcium 9.5 Cardiac Enzymes 05/05/20 Range/Units 12:32 Troponin I < 0.015 (0-0.045) ng/ml Liver Function 05/05/20 Range/Units 12:32 Total Bilirubin 0.9 (0.2-1) mg/dl AST 21 (15-37) U/L ALT 33 (12-78) U/L Alkaline Phosphatase 207 H (45-117) U/L Albumin 3.7 (3.4-5.0) gm/dl Urine 05/05/20 Range/Units 13:49 Urine Color Yellow Urine Appearance Clear (Clear) Urine pH 5.5 (4.5-7.5) Ur Specific [place] 1.018 (1.000-1.030) Urine Protein Negative (Negative) Urine Glucose (UA) 3+ H (Negative) Diagnostic Findings CT head: IMPRESSION: No acute intracranial abnormality. CXR: IMPRESSION: No active disease in the chest. ECG Rhythm: normal sinus Findings: + nonspecific-ST abn Supervising Physician Co-Signing Physician Notes Pt was seen and examined. Agreed with Alexandra HULL exam, assessment and plan. 79yo F with a PMH of uncontrolled DM II on insulin, asthma, mood disorder, HTN and ISA on CPAP present to the ER after having an episodes of confusion and hypergl ycemia with BS around 600 at the [facility]. Rapid response was called and was sent to the ER for eval. On admission pt denies any chest pain, palpitation, dizziness and SOB. No focal neuro deficit on exam. CT head on admission showed no acute intracranial abnormality. EKG was performed, revealing sinus tachycardia at 110 bpm with mild nonspecific repolarization changes in inferior lateral leads. Glucose on admission 627 with no anion gap. Lactic acid 2.8 and creatinine 2.06. Received IVF and will start on insulin drip. Pharmacy consulted for glycemic management. Will consult art educator. Will hold lasix and lisinopril due to acute kidney failure. Will avoid nephrotoxic agents. Will get a resting echo. PT/OT eval and fall precaution. Continue monitor BMP daily. MD Semaj
[2020-05-05] MEDS ORDERED: ACETAMINOPHEN 325 MG TAB PO PRN (17:21)
[2020-05-05] MEDS ORDERED: POLYETHYLENE (MIRALAX) 17 GM PACK PO PRN (17:21)
[2020-05-05] MEDS ORDERED: PHARMACY GLYCEMIC MGMT CONSULT PRN (17:51)
[2020-05-05] MEDS ORDERED: GLUCOSE 10 TABS/TUBE PO PRN (18:00)
[2020-05-05] MEDS ORDERED: GLUCAGON FOR INJ 1 MG VIAL IM PRN (18:00)
[2020-05-05] MEDS ORDERED: GLUCOSE 40% GEL 15 GM TUBE PO PRN (18:00)
[2020-05-05] MEDS ORDERED: INSULIN REGULAR 250 UNITS in SODIUM CHLORIDE 0.9% 247.5 ML IV SCH (18:00)
[2020-05-05] MEDS ORDERED: CARBOHYDRATES FOR HYPOGLYCEMIA PO PRN (18:00)
[2020-05-05] MEDS ORDERED: DEXTROSE 50% 50 ML SYRINGE IV PRN (18:00)
[2020-05-05] MEDS ORDERED: INSULIN HUMAN REGULAR BOLUS IV ONE (18:15)
[2020-05-05] MEDS ORDERED: SODIUM CHLORIDE 0.9% IV ONE (18:15)
[2020-05-05] MEDS ORDERED: ALBUTEROL HFA 8 GM INHALER INH PRN (19:03)
[2020-05-05] MEDS: INSULIN ASPART 100 UNITS/ML 3 ML PEN SC SCH ×2 (19:44→22:18)
[2020-05-05] MEDS: MONTELUKAST SODIUM 10 MG TABLET PO SCH (22:17)
[2020-05-05] MEDS: GABAPENTIN 300 MG CAP PO SCH (22:17)
[2020-05-05] MEDS: HEPARIN SOD 5,000 UNIT/0.5 ML VIAL SQ SCH (22:19)
[2020-05-06] MEDS: HEPARIN SOD 5,000 UNIT/0.5 ML VIAL SQ SCH ×3 (05:09→21:19)
[2020-05-06] MEDS: ATORVASTATIN 40 MG TAB PO SCH (07:35)
[2020-05-06] MEDS: PANTOprazole 40 MG TAB PO SCH (07:35)
[2020-05-06] MEDS: FLUTICASONE PROPIONATE NA SPR 16 GM BTL NAE SCH (07:35)
[2020-05-06] MEDS: METOPROLOL SUCC 25MG EXT REL TAB PO SCH (07:35)
[2020-05-06] MEDS: FLUTICASONE/VILANTEROL 200/25MCG 14 PUFFS/INHALER INH SCH (07:35)
[2020-05-06] MEDS: PARoxetine HCL 10 MG TAB PO SCH (07:35)
[2020-05-06] MEDS: ASPIRIN 81 MG ECTAB PO SCH (07:36)
[2020-05-06] MEDS: GABAPENTIN 300 MG CAP PO SCH ×3 (07:36→20:45)
[2020-05-06] MEDS: LORATADINE 10 MG TAB PO SCH (07:36)
[2020-05-06] MEDS: INSULIN ASPART 100 UNITS/ML 3 ML PEN SC SCH ×4 (08:25→20:47)
[2020-05-06] MEDS ORDERED: INSULIN GLARGINE SOLOSTAR 100 UNITS/ML 3 ML PEN SC ONE (08:30)
--- NOTE | 2020-05-06 09:51 | Pharmacy Report ---
Glycemic Control Consultation - Date of Service May 06, 2020 - Scope Scope: Glycemic Pharmacist consulted for glycemic control and to write orders per [facility] inpatient glycemic control protocol. - Objective Weight: 87.8 kg Accuchecks BSG (last 24hrs): 05/05/20 05/05/20 05/05/20 12:32 13:18 15:06 Glucose 673 H* POC Glucose 572 H* POC Glucose (other) 633 H* 05/05/20 05/05/20 05/05/20 18:16 19:31 20:29 Glucose POC Glucose 443 H* 354 H* 350 H* POC Glucose (other) 05/05/20 05/05/20 05/05/20 21:27 22:27 23:33 Glucose POC Glucose 326 H* 251 H 216 H POC Glucose (other) 05/06/20 05/06/20 05/06/20 00:30 01:32 02:29 Glucose POC Glucose 218 H 184 H 154 H POC Glucose (other) 05/06/20 05/06/20 05/06/20 03:34 04:29 05:30 Glucose POC Glucose 161 H 140 H 136 H POC Glucose (other) 05/06/20 07:37 Glucose POC Glucose 139 H POC Glucose (other) Laboratory Data (last 24hrs): 05/05/20 05/05/20 12:32 12:32 Potassium 4.2 Carbon Dioxide 28 Anion Gap 10.0 Creatinine 2.06 H Est Cr Clr Drug Dosing 26.3 Osmolality 327 H Beta-Hydroxybutyric Acd 2.20 - Recent Pertinent Medications Outpatient Anti-diabetic Regimen: * Victoza, Lantus 30 units HS * A1c = 14.1 % 04/2020 The patient is currently receiving: * Insulin infusion which has plateaued at about 1.7 units/hr Risk Factors for Insulin Resistance: * Diet: T2DM - Assessment & Plan Assessment & Plan: ASSESSMENT: * Ms Wheeler is a 79 y/o F with a PMH of T2DM on two injectables at home. Patient admitted with severe hyperglycemia (> 600 mg/dL) * Insulin infusion started at 3.3 units/hr and stabilized at 1.7 units/hr x over 4 hours. This amounts to about 40 units of basal per day (lines up with weight-based stress of 3 Lantus dosing). Give full 24 hour dose now (as patient basal deficient) then turn infusion off around 1500. Give additional basal tonight based upon blood sugars. * For Novolog, utilize weight-based stress of 3. Add overnight checks to ensure 24 hour coverage. PLAN FOR INPATIENT GLYCEMIC CONTROL: * Basal insulin * Lantus 40 units SQ x 1 then 0-20 units HS (0 units if BSG < 160 mg/dL; 10 units if BSG 160-250 mg/dL; 20 units if BSG if BSG greater than 250 mg/dL) * Bolus insulin * NovoLog per scale ACHS or Q6hrs while NPO * Goal Range: Low 120 mg/dL - High 160 mg/dL * Correction Factor: 20 mg/dL/unit * Nutritional / Prandial insulin per carb ratio of 1 unit per 7 grams CHO consumed * Please note that the plan above was derived based on current level of insulin resistance and hospital stress. These recommendations are appropriate for inpatient admission only. Plan of care upon discharge will need to be reassessed to avoid potential outpatient hypo/hyperglycemia. Thank you.
[2020-05-06 10:30] LABS: BUN Creatinine Ratio 18.8 (10-20); Calcium 9.4 mg/dl (8.5-10.1); Creatinine Clr Calc Pharmacy 41.9 ml/min; Est GFR (African American) 46.7; Est GFR (Non-African American) 40.3; Potassium 3.6 mmol/L (3.5-5.1)
[2020-05-06] MEDS ORDERED: DC IV INSULIN INFUSION 1 EA DEVI ONE (15:00)
[2020-05-06] MEDS ORDERED: MICONAZOLE NITRATE POWDER 43 GM EXT PRN (15:24)
--- NOTE | 2020-05-06 17:49 | Hospitalist Progress Note ---
Date of Service May 06, 2020 Assessment & Plan (1) HLD (hyperlipidemia): Continue statin DVT Ppx: SQ heparin Code status: FULL PCP: Rachel Dispo: Admitted to med surg with tele. Discharge planning ordered. Patient seen in collaboration with Dr. Cha. Please see addendum. (2) Acute metabolic encephalopathy: was sent to the ER after found to be confused, tremors, diaphoresis and elevated BS above [address] [facility] possible related to hyperglycemia CT head showed no acute intracranial abnormality. No focal neuro deficit on exam mental status back to normal (3) IDDM (insulin dependent diabetes mellitus): (4) Hyperglycemia without ketosis: Glucose on admission 627, no anion gap Last Hba1c 14.1 on 04/2020 Starting on insulin drip per pharmacy Insulin drip was discontinued than transition to subq basal lantus Pharmacy on board for glycemic management Continue monitor BS (5) Lactic acidemia: due to elevated glucose and dehydration Lactic acid 2.8 on admission Received IVF Repeat lactic acid 1.1 No sign of infection (Blood cx no growth and no leukocytosis) (6) Acute kidney injury superimposed on chronic kidney disease: Mostly due to dehydration from hyperglycemia Creatinine on admission 2.06, baseline creatinine ~1 received IVF, creatinine 1.2 today Continue to hold lasix and lisinopril Continue monitor BMP (7) Acute electrocardiogram changes: EKG performed during episode of delirium, seen by Dr. Schaefer. E KG with mild nonspecific repolarization changes in inferior lateral leads Troponin negative Denies any chest pain ECHO showed LV with no wall motion abnormality with EF 55 to 60 % (8) Mood disorder: Continue SSRI Consider to increase paxil to 20g daily (9) HTN (hypertension): BP in the low side Continue beta-chelsey Continue to hold Lisinopril and lasix Continue monitor BP (10) Asthma: Continue albuterol inh PRN, Singulair stable Admission and Anticipated Discharge Date Admission Date: May 05, 2020 Subjective Pt was seen and examined Lying in bed with no distress Pt said that she feels fine Denies any chest pain, palpitation and SOB Physical Exam Physical Exam: General- No acute distress Head- atraumatic Eyes- PERRL, EOMI, ENT- oropharynx clear Neck- supple, no JVD Lungs- clear to auscultation Heart- regular rhythm; no murmur Abdomen- normal bowel sounds, soft, nontender Extremities- no calf tenderness Neuro- alert, oriented x 3; PERRL, EOMI; no facial palsy; no dysarthria Skin- warm & dry Results & Data Results & Data ([facility]) Vital Signs (Past 12 Hours) Vital Signs Temp Pulse Resp BP BP Pulse Ox 05/06/20 15:10 36.7 C 61 20 98/59 L 96 05/06/20 11:50 36.5 C 65 20 117/64 93 05/06/20 07:27 36.8 C 60 18 154/72 H 93
[2020-05-06] MEDS: MONTELUKAST SODIUM 10 MG TABLET PO SCH (20:45)
[2020-05-06] MEDS ORDERED: INSULIN GLARGINE SOLOSTAR 100 UNITS/ML 3 ML PEN SC SCH (21:00)
[2020-05-07] MEDS: INSULIN ASPART 100 UNITS/ML 3 ML PEN SC SCH ×6 (00:24→20:57)
[2020-05-07] MEDS: HEPARIN SOD 5,000 UNIT/0.5 ML VIAL SQ SCH ×3 (05:51→20:59)
--- NOTE | 2020-05-07 07:46 | Electrocardiogram Report ---
Test Reason : Blood Pressure : / mmHG Vent. Rate : 082 BPM Atrial Rate : 082 BPM P-R Int : 200 ms QRS Dur : 098 ms QT Int : 354 ms P-R-T Axes : 036 006 -10 degrees QTc Int : 413 ms Normal sinus rhythm Possible Inferior infarct , age undetermined T wave abnormality, consider anterior ischemia Abnormal ECG No previous ECGs available Confirmed by Silver Martin ([id number]) on 05/07/2020 7:46:23 AM Referred By: REFERRED SELF Confirmed By:Silver Martin
[2020-05-07] MEDS: METOPROLOL SUCC 25MG EXT REL TAB PO SCH (07:51)
[2020-05-07] MEDS: INSULIN GLARGINE SOLOSTAR 100 UNITS/ML 3 ML PEN SC SCH (07:51)
[2020-05-07] MEDS: PARoxetine HCL 10 MG TAB PO SCH (07:52)
[2020-05-07] MEDS: FLUTICASONE PROPIONATE NA SPR 16 GM BTL NAE SCH (07:52)
[2020-05-07] MEDS: GABAPENTIN 300 MG CAP PO SCH ×3 (07:52→20:58)
[2020-05-07] MEDS: FLUTICASONE/VILANTEROL 200/25MCG 14 PUFFS/INHALER INH SCH (07:52)
[2020-05-07] MEDS: PANTOprazole 40 MG TAB PO SCH (07:52)
[2020-05-07] MEDS: ASPIRIN 81 MG ECTAB PO SCH (07:52)
[2020-05-07] MEDS: LORATADINE 10 MG TAB PO SCH (07:52)
[2020-05-07] MEDS: ATORVASTATIN 40 MG TAB PO SCH (07:52)
--- NOTE | 2020-05-07 08:38 | Electrocardiogram Report ---
Test Reason : Blood Pressure : / mmHG Vent. Rate : 074 BPM Atrial Rate : 074 BPM P-R Int : 204 ms QRS Dur : 086 ms QT Int : 388 ms P-R-T Axes : 045 009 -19 degrees QTc Int : 430 ms Normal sinus rhythm Low voltage QRS Nonspecific T wave abnormality Abnormal ECG When compared with ECG of 05-MAY-2020 12:57, (unconfirmed) Borderline criteria for Inferior infarct are no longer Present Confirmed by Silver Martin ([id number]) on 05/07/2020 8:38:17 AM Referred By: REFERRED SELF Confirmed By:Silver Martin
--- NOTE | 2020-05-07 08:45 | Electrocardiogram Report ---
Test Reason : Blood Pressure : / mmHG Vent. Rate : 061 BPM Atrial Rate : 061 BPM P-R Int : 206 ms QRS Dur : 098 ms QT Int : 386 ms P-R-T Axes : 038 006 000 degrees QTc Int : 388 ms Normal sinus rhythm Normal ECG When compared with ECG of 06-MAY-2020 07:26, (unconfirmed) Nonspecific T wave abnormality, improved in Anterior leads Confirmed by Silver Martin ([id number]) on 05/07/2020 8:44:57 AM Referred By: REFERRED SELF Confirmed By:Silver Martin
[2020-05-07 09:00] LABS: BUN Creatinine Ratio 17.5 (10-20); Calcium 9.7 mg/dl (8.5-10.1); Creatinine Clr Calc Pharmacy 42.1 ml/min; Est GFR (African American) 47.1; Est GFR (Non-African American) 40.7; Potassium 3.8 mmol/L (3.5-5.1)
--- NOTE | 2020-05-07 09:56 | Pharmacy Report ---
Glycemic Control Progress Note - Date of Service May 07, 2020 - Scope Glycemic Pharmacist consulted for glycemic control to write orders per [facility] inpatient glycemic control protocol. - Objective Accuchecks BSG(last 24 hours):: 05/06/20 05/06/20 05/06/20 09:46 10:31 11:31 Glucose 236 H POC Glucose 234 H 209 H 05/06/20 05/06/20 05/06/20 12:29 13:30 14:32 Glucose POC Glucose 192 H 211 H 168 H 05/06/20 05/06/20 05/07/20 16:42 20:36 00:22 Glucose POC Glucose 188 H 202 H 198 H 05/07/20 05/07/20 05/07/20 03:46 07:15 08:23 Glucose 273 H POC Glucose 209 H 180 H - Recent Pertinent Medications The patient is currently receiving: * Basal insulin: Lantus 40 units every 24 hours plus Lantus 0-20 units HS * Correctional Insulin: Novolog Correction per scale ACHS Goal Range: Low 120 mg/dL - High 160 mg/dL Correction Factor: 20 mg/dL/unit * Prandial insulin: Per carb ratio of 1 unit per 7 grams CHO consumed - Outpatient Anti-Diabetic Meds Victoza Lantus 30 units HS Novolog - Assessment & Plan ASSESSMENT: * See progress note from 05/06/20 for more background info, in short: * Pt receiving SQ basal bolus insulin regimen for hyperglycemia secondary to baseline DM (outpatient regimen on hold). * Patient is currently receiving an average of 74 units of insulin per day SQ plus insulin infusion until ~1500 yesterday * 50 units of basal insulin * 24 units of prandial/correctional insulin * BSGs ranging 134 - 234 mg/dl over the past 24hrs * Changes needed to insulin regimen: * AM Fasting BSG = 180 mg/dl. This is slightly above goal range for patient based on inpatient targets and co-morbidities. The patient received 40 units of Lantus in the morning plus 10 extra at bedtime. Overnight, patient received 5 extra units. Increase Lantus to 50 units this morning. * Post-prandial BSGs trended well off of the insulin drip. Tighten CR slightly. * Total daily dose = ~90 units. Adjusted insulin appropriately. PLAN FOR INPATIENT GLYCEMIC CONTROL: * Increasing Lantus to 50 units SQ daily * Continuing correction factor of 20 mg/dl/unit * TIGHTENING carb ratio to 1 unit per 6 grams CHO consumed * Continuing goal range of Low 120 mg/dL - High 160 mg/dL * Please note that the plan above was derived based on current level of insulin resistance and hospital stress. These recommendations are appropriate for inpatient admission only. Plan of care upon discharge will need to be reassessed to avoid potential outpatient hypo/hyperglycemia. Thank you.
[2020-05-07] MEDS ORDERED: POLYETHYLENE (MIRALAX) 17 GM PACK PO PRN (18:44)
--- NOTE | 2020-05-07 19:17 | Hospitalist Progress Note ---
Date of Service May 07, 2020 Assessment & Plan (1) Acute metabolic encephalopathy: was sent to the ER after found to be confused, tremors, diaphoresis and elevated BS above 600 at [facility] possible related to hyperglycemia CT head showed no acute intracranial abnormality. No focal neuro deficit on exam mental status back to normal (2) IDDM (insulin dependent diabetes mellitus): (3) Hyperglycemia without ketosis: Glucose on admission 627, no anion gap Last Hba1c 14.1 on 04/2020 Starting on insulin drip per pharmacy Insulin drip was discontinued than transition to subq basal lantus Pharmacy on board for glycemic management Continue monitor BS (4) Lactic acidemia: due to elevated glucose and dehydration Lactic acid 2.8 on admission Received IVF Repeat lactic acid 1.1 No sign of infection (Blood cx no growth and no leukocytosis) (5) Acute kidney injury superimposed on chronic kidney disease: Mostly due to dehydration from hyperglycemia Creatinine on admission 2.06, baseline creatinine ~1 received IVF, creatinine 1.2 today Continue to hold lasix and lisinopril Continue monitor BMP (6) Acute electrocardiogram changes: EKG performed during episode of delirium, seen by Dr. Schaefer. E KG with mild nonspecific repolarization changes in inferior lateral leads Troponin negative Denies any chest pain ECHO showed LV with no wall motion abnormality with EF 55 to 60 % (7) Mood disorder: Continue SSRI Consider to increase paxil to 20g daily (8) HTN (hypertension): BP in the low side Continue beta-chelsey Continue to hold Lisinopril and lasix Continue monitor BP (9) Asthma: Continue albuterol inh PRN, Singulair stable (10) HLD (hyperlipidemia): Continue statin DVT Ppx: SQ heparin Code status: FULL PCP: Rachel Dispo: Possible discharge home tomorrow Admission and Anticipated Discharge Date Admission Date: May 05, 2020 Subjective Pt was seen and examined Sitting in bed with no distress eating lunch with at bedside Pt said that she feels ok said that pt gave herself the insulin and does not know how much she takes Pt does not know the dose of her Lantus when i asked her about her outpatient dose Denies any chest pain, palpitation, dizziness and SOB Physical Exam Physical Exam: General- No acute distress Head- atraumatic Eyes- PERRL, EOMI, ENT- oropharynx clear Neck- supple, no JVD Lungs- clear to auscultation Heart- regular rhythm; no murmur Abdomen- normal bowel sounds, soft, nontender Extremities- no calf tenderness Neuro- alert, oriented x 3; PERRL, EOMI; no facial palsy; no dysarthria Skin- warm & dry Results & Data Results & Data ([facility]) Vital Signs (Past 12 Hours) Vital Signs Temp Pulse Pulse Resp BP BP Pulse Ox 05/07/20 19:02 36.6 C 65 18 146/64 H 95 05/07/20 16:00 69 05/07/20 15:31 36.7 C 62 17 120/47 L 93 05/07/20 11:04 36.6 C 59 L 18 129/73 95 05/07/20 08:00 36.5 C 61 18 138/82 94
[2020-05-07] MEDS: MONTELUKAST SODIUM 10 MG TABLET PO SCH (20:58)
[2020-05-08] MEDS: HEPARIN SOD 5,000 UNIT/0.5 ML VIAL SQ SCH ×2 (05:59→12:58)
[2020-05-08] MEDS: ASPIRIN 81 MG ECTAB PO SCH (07:47)
[2020-05-08] MEDS: PARoxetine HCL 10 MG TAB PO SCH (07:47)
[2020-05-08] MEDS: PANTOprazole 40 MG TAB PO SCH (07:47)
[2020-05-08] MEDS: METOPROLOL SUCC 25MG EXT REL TAB PO SCH (07:48)
[2020-05-08] MEDS: LORATADINE 10 MG TAB PO SCH (07:48)
[2020-05-08] MEDS: GABAPENTIN 300 MG CAP PO SCH ×2 (07:48→12:57)
[2020-05-08] MEDS: FLUTICASONE/VILANTEROL 200/25MCG 14 PUFFS/INHALER INH SCH (07:49)
[2020-05-08] MEDS: ATORVASTATIN 40 MG TAB PO SCH (07:49)
[2020-05-08] MEDS: INSULIN GLARGINE SOLOSTAR 100 UNITS/ML 3 ML PEN SC SCH (07:50)
[2020-05-08] MEDS: FLUTICASONE PROPIONATE NA SPR 16 GM BTL NAE SCH (07:50)
[2020-05-08] MEDS: INSULIN ASPART 100 UNITS/ML 3 ML PEN SC SCH ×2 (07:51→12:57)
[2020-05-08] MEDS ORDERED: NovoLIN-N (NPH) PER UNIT CHARGE SQ SCH (08:00)
--- NOTE | 2020-05-08 09:40 | Pharmacy Report ---
Pharmacy Glycemic Short Note 2 - Date of Service May 08, 2020 - Glycemic Short BSG Results (Last 24 hours): 05/07/20 05/07/20 05/07/20 11:31 15:17 16:28 POC Glucose 216 H 184 H 132 H 05/07/20 05/08/20 20:17 07:02 POC Glucose 202 H 124 H OUTPATIENT ANTIDIABETIC REGIMEN: * Victoza * Lantus 30 units HS * Novolog sliding scale per Dr. Cha, but unknown parameters * Anticipate significant outpatient non-adherence due to HbA1c increasing from 9.1% in February 2020 to 14.1% this admission. Spoke w Dr. Cha - is now managing her medications, but hd says that the Lantus and Victoza doses are both "1.6 or 1.8". Therefore patient may not have been receiving any Lantus or possibly very very low doses which would explain her significant increase ASSESSMENT: * BSG's have trended down nicely * AM fasting 124 mg/dL this AM - will give one-time NPH dose this AM to help get back Lantus back to HS schedule as an outpatient. Then resume similar outpatient regimen for Lantus this evening * Will loosen Novolog parameters with lunch as NPH will likely cover some prandial needs PLAN FOR INPATIENT GLYCEMIC CONTROL: * Hold outpatient oral diabetes medications * Basal insulin * NPH 25 units SC x1 this AM * Lantus 20-30 units SQ tonight based on BSG (if still admitted) * Bolus insulin * NovoLog per scale ACHS or Q6hrs while NPO * Goal Range: Low 120 mg/dL - High 160 mg/dL * Correction Factor: 20 mg/dL/unit * Nutritional / Prandial insulin per carb ratio of 1 unit per 8 grams CHO consumed PLAN FOR DISCHARGE: * Dr. Cha notes patient will have follow-up for diabetes scheduled soon after discharge (anticipated discharge today) * Discontinue Novolog sliding scale for now to simplify regimen. Defer to outpatient providers if this can/should be resumed. * Continue outpatient Victoza * Resume Lantus 30 units HS - 1st dose tonight (if discharged today)
--- NOTE | 2020-05-08 16:11 | Hospitalist Progress Note ---
Date of Service May 08, 2020 Assessment & Plan (1) Acute metabolic encephalopathy: was sent to the ER after found to be confused, tremors, diaphoresis and elevated BS above 600 at [facility] possible related to hyperglycemia CT head showed no acute intracranial abnormality. No focal neuro deficit on exam mental status back to normal Stable (2) IDDM (insulin dependent diabetes mellitus): (3) Hyperglycemia without ketosis: Glucose on admission 627, no anion gap Last Hba1c 14.1 on 04/2020 Starting on insulin drip per pharmacy Insulin drip was discontinued than transition to subq basal lantus Pharmacy on board for glycemic management financial advisor on board and provided teaching for the patient about on how to inject herself insulin financial advisor said that when asked pt to demonstrate how she injected herself insulin, the first time she appeared to inject herself correctly, but after that she was not able to do the injection properly Case discussed with pharmacy that recommended to continue home insulin dose and Victoza Will schedule close follow up with PCP and MTM for diabetes follow up Continue monitor BS (4) Lactic acidemia: due to elevated glucose and dehydration Lactic acid 2.8 on admission Received IVF Repeat lactic acid 1.1 No sign of infection (Blood cx no growth and no leukocytosis) (5) Acute kidney injury superimposed on chronic kidney disease: Mostly due to dehydration from hyperglycemia Creatinine on admission 2.06, baseline creatinine ~1 received IVF, creatinine 1.2 today Continue to hold lasix and lisinopril Will resume lasix and lisinopril on discharge Check BMP in 1 week (6) Acute electrocardiogram changes: EKG performed during episode of delirium, seen by Dr. Schaefer. E KG with mild nonspecific repolarization changes in inferior lateral leads Troponin negative Denies any chest pain ECHO showed LV with no wall motion abnormality with EF 55 to 60 % (7) Mood disorder: Continue SSRI Consider to increase paxil to 20g daily (8) HTN (hypertension): BP stable Continue beta-chelsey Lisinopril decreased to 5mg and Lasix decreased to 40mg on discharge Continue monitor BP (9) Asthma: Continue albuterol inh PRN, Singulair stable (10) HLD (hyperlipidemia): Continue statin DVT Ppx: SQ heparin Code status: FULL PCP: Rachel Dispo: Possible discharge home today Admission and Anticipated Discharge Date Admission Date: May 05, 2020 Subjective Pt was seen and examined Sitting in at the edge of the bed with no distress Pt said that she feels much better Denies any chest pain, palpitation, dizziness and SOB Physical Exam Physical Exam: General- No acute distress Head- atraumatic Eyes- PERRL, EOMI, ENT- oropharynx clear Neck- supple, no JVD Lungs- clear to auscultation Heart- regular rhythm; no murmur Abdomen- normal bowel sounds, soft, nontender Extremities- no calf tenderness Neuro- alert, oriented x 3; PERRL, EOMI; no facial palsy; no dysarthria Skin- warm & dry Results & Data Results & Data ([facility]) Vital Signs (Past 12 Hours) Vital Signs Temp Pulse Pulse Pulse Resp BP BP 05/08/20 15:41 70 05/08/20 15:16 36.7 C 71 20 134/81 05/08/20 12:12 36.4 C L 59 L 20 123/75 05/08/20 08:00 65 64 05/08/20 07:31 36.4 C L 59 L 20 139/80 Pulse Ox 05/08/20 15:41 05/08/20 15:16 95 05/08/20 12:12 96 05/08/20 08:00 05/08/20 07:31 96
[2020-05-08] MEDS ORDERED: INSULIN GLARGINE SOLOSTAR 100 UNITS/ML 3 ML PEN SC SCH (21:00)
--- NOTE | 2020-05-10 23:28 | Discharge Summary ---
Date of Service May 08, 2020 Admission HPI Per Admitting Provider This is a 79yo F with a PMH of uncontrolled DM II on insulin, asthma, mood disorder, HTN and ISA on CPAP and other medical problems listed below who presents after episode of acute delirium and [facility]. Patient accompanied family member to [facility] today and was going to get a drink of water when she appeared to be ill in appearance by a bystander and a rapid response was called. Dr. Schaefer responded to the scene and noted that patient had tremors confusion and diaphoresis on initial assessment. Fingerstick blood sugar was found to be around 600. Patient describes this episode as "an out of body experience" and has a hard time remembering all of the details. Denies any chest pain or shortness of breath at this time. EKG was performed, revealing sinus tachycardia at 110 bpm with mild nonspecific repolarization changes in inferior lateral leads. Family was not present during this episode. Patient was directed to [facility] by EMS for further work-up. Patient has had significant decline in health since February. At that time, patient's hemoglobin A1c was 9.1 with creatinine 1.0. Hemoglobin A1c last week was 14.1 and patient has elevated creatinine at 2.06 today. Was observed at [facility] in late March due to unintentional overdose of gabapentin after patient's pillbox was reorganized. Per discussion with , patient seems fatigued and more confused over the past month or so. He is now exclusively managing her medications and trying to encourage her to improve her diet. He states that they have spoken with case management about possible addition of home health since [facility] hospitalization, but patient has refused this. Patient currently endorses feeling fatigued, foggy and more down than usual. Endorses feeling sad, hopeless and less interested in normal activities. Also feels anxious. Denies any suicidal ideation. No lightheadedness, visual changes, chest pain, palpitations, shortness of breath, nausea, vomiting, abdominal pain, dysuria, diarrhea constipation. Admission Exam Per Admitting Provider General Appearance: WD/WN, vitals as above, NAD, sitting up in bed, anxious, tremors (chronic) Head: normocephalic, atraumatic Eyes: normal inspection, PERRL, conjunctivae normal, anicteric sclerae ENT: external ear and nose normal, oropharynx normal Neck: normal visual inspection, trachea midline, no thyromegaly Respiratory: normal respiratory effort, lungs clear to auscultation, no wheeze, rales, rhonchi. No accessory muscle use Cardiovascular: regular rate, rhythm, no murmur, normal peripheral pulses, no BLE edema. Vessels: no JVD Chest: normal inspection of chest Abdomen/GI: normal bowel sounds, soft, nontender, no hepatosplenomegaly Extremities/Musculoskeletal: no cyanosis or clubbing, extremities motor strength 5/5 Neurologic: PERRL, EOMI, accommodation nl, no face palsy, no dysarthria, CN's II-XI intact bilaterally and moves all extremities Psychiatric: A+Ox3, anxious Skin: no rashes, normal color, warm/dry Principal Diagnosis Acute metabolic encephalopathy: Diabetes mellitus): Hyperglycemia without ketosis: Lactic acidemia: Acute kidney injury superimposed on chronic kidney disease: Mood disorder: HTN (hypertension): Asthma: HLD (hyperlipidemia): Discharge Exam General- No acute distress Head- atraumatic Eyes- PERRL, EOMI, ENT- oropharynx clear Neck- supple, no JVD Lungs- clear to auscultation Heart- regular rhythm; no murmur Abdomen- normal bowel sounds, soft, nontender Extremities- no calf tenderness Neuro- alert, oriented x 3; PERRL, EOMI; no facial palsy; no dysarthria Skin- warm & dry Discharge Data Allergies Allergy/AdvReac Type Severity Reaction Status Date / Time latex AdvReac Unknown Unverified 05/05/20 14:13 Consultations 05/05/20 14:42 ED Decision to Admit Stat 05/05/20 17:21 Consult Case Management - Discharge Planning Routine Ordered Studies 05/05/20 12:50 CT head/brain wo con Stat CT head/brain wo con CLINICAL HISTORY: 79 years-old Female with ams. Acutely altered mental status TECHNIQUE: Multiple axial CT images of the head were obtained without contrast. A dose lowering technique was utilized adhering to the principles of ALARA. CT DOSE: 601.98 mGy.cm COMPARISON: None. FINDINGS: No acute intracranial hemorrhage, midline shift, intracranial mass, hydrocephalus, territorial ischemia or abnormal extra-axial collection. Age-re lated involutional changes. Patchy white matter hypodensities suggest chronic microvascular ischemic disease. The calvarium is intact. Bilateral lens replacement. The paranasal sinuses, mastoid air cells, and middle ear cavities are clear. IMPRESSION: No acute intracranial abnormality. ACT 112: Negative or not required by law. The above report was generated using voice recognition software. It may contain grammatical, syntax or spelling errors. Electronically signed by: Wei Valencia M.D. 05/05/2020 1:38 PM Dictated: 05/05/20 1336 Transcribed: 05/05/20 1336 XR chest 1V portable CLINICAL HISTORY: SEPSIS COMPARISON STUDY: No previous studies for comparison. FINDINGS: The heart is mildly enlarged. There is no failure. There is no focal pulmonary consolidation. There are no pleural effusions. A linear opacity at the left lung base likely represents subsegmental atelectasis.[ IMPRESSION: No active disease in the chest. ACT 112: Negative or not required by law. Electronically signed by: James Almendarez M.D. 05/05/2020 1:21 PM Dictated: 05/05/20 1321 Transcribed: 05/05/20 1321 Diabetes Follow up Diabetes Follow-up Needed for HgbA1c >9% Hospital Course (1) Acute metabolic encephalopathy: was sent to the ER after found to be confused, tremors, diaphoresis and elevated BS above 600 at [facility] possible related to hyperglycemia CT head showed no acute intracranial abnormality. No focal neuro deficit on exam mental status back to normal Stable (2) IDDM (insulin dependent diabetes mellitus): (3) Hyperglycemia without ketosis: Glucose on admission 627, no anion gap Last Hba1c 14.1 on 04/2020 Starting on insulin drip per pharmacy Insulin drip was discontinued than transition to subq basal lantus Pharmacy on board for glycemic management decorating and assembly supervisor on board and provided teaching for the patient about on how to inject herself insulin decorating and assembly supervisor said that when asked pt to demonstrate how she injected herself insulin, the first time she appeared to inject herself correctly, but after that she was not able to do the injection properly Case discussed with pharmacy that recommended to continue home insulin dose and Victoza Will schedule close follow up with PCP and MTM for diabetes follow up Continue monitor BS (4) Lactic acidemia: due to elevated glucose and dehydration Lactic acid 2.8 on admission Received IVF Repeat lactic acid 1.1 No sign of infection (Blood cx no growth and no leukocytosis) (5) Acute kidney injury superimposed on chronic kidney disease: Mostly due to dehydration from hyperglycemia Creatinine on admission 2.06, baseline creatinine ~1 received IVF, creatinine 1.2 today Continue to hold lasix and lisinopril Will resume lasix and lisinopril on discharge Check BMP in 1 week (6) Acute electrocardiogram changes: EKG performed during episode of delirium, seen by Dr. Schaefer. E KG with mild nonspecific repolarization changes in inferior lateral leads Troponin negative Denies any chest pain ECHO showed LV with no wall motion abnormality with EF 55 to 60 % (7) Mood disorder: Continue SSRI Consider to increase paxil to 20g daily (8) HTN (hypertension): BP stable Continue beta-chelsey Lisinopril decreased to 5mg and Lasix decreased to 40mg on discharge Continue monitor BP (9) Asthma: Continue albuterol inh PRN, Singulair stable (10) HLD (hyperlipidemia): Continue statin DVT Ppx: SQ heparin Code status: FULL PCP: Rachel Dispo: Possible discharge home today Total Time Total Time Spent Total Time Spent (In Minutes): 35 minutes Total Time Includes: Examination of the Patient, Discharge Planning, Medication Reconciliation, Communication With Other Providers and Other Discharge Plan Discharge Items Patient Disposition: Home - Self-Care Reason For Visit: ACUTE DELIRIUM, HYPERGLYCEMIA Discharge Diagnosis: Acute metabolic encephalopathy: Diabetes mellitus): Hyperglycemia without ketosis: Lactic acidemia: Acute kidney injury superimposed on chronic kidney disease: Mood disorder: HTN (hypertension): Asthma: HLD (hyperlipidemia): Activity: Resume your previous activity Non-emergency contact: Primary Care Provider Call non-emergency contact if: you have any medication questions Follow-up/Referrals: Silver Ramos DO [Primary Care Provider] - 05/12/20 2:00 pm (Date & Time 05/12/2020 2:00 PM Provider Ninoska Uribe MD [facility] [address] ) Diet: Carb Consistent or DM2 Addtl Attending Provider Instructions: Follow up with your primary care provider Dr. Ramos on 05/12/20 @ 2PM Follow up with [facility] clinic on 05/24 for your diabetes Check BMP in 1 week to monitor your renal function (your physician will order it) Continue monitor your blood sugar and bring your blood sugar log at your next appointment with your provider Fall precaution Lisinopril decreased to 5 mg daily since your blood pressure has been stable while in the hospital. Please stop lisinopril 40mg Lasix decreased to 40mg. Please stop taking lasix 60mg Continue monitor your blood pressure and your physician will adjust your blood pressure med if needs Pending Studies at Discharge: No Stand-Alone Forms: My [facility], Smoking Cessation Medications and DC Order Prescriptions: New lisinopril 5 mg tablet 5 mg PO DAILY Qty: 30 RF: 0 Continued atorvastatin 40 mg tablet 40 mg PO DAILY RF: 0 paroxetine HCl 10 mg tablet 10 mg PO QAM RF: 0 clotrimazole 1 % Cream 1 appful VAGINAL DAILY RF: 0 aspirin [Aspirin Low Dose] 81 mg Tablet,Delayed Release (Dr/Ec) 81 mg PO DAILY RF: 0 fluticasone propion-salmeterol 500-50 mcg/dose blister with device 1 inh INHALATION Q12H RF: 0 gabapentin 300 mg capsule 300 mg PO TID RF: 0 omeprazole 20 mg capsule,delayed release(DR/EC) 20 mg PO DAILY RF: 0 montelukast 10 mg tablet 10 mg PO HS RF: 0 metoprolol succinate 25 mg tablet extended release 24 hr 25 mg PO DAILY RF: 0 albuterol sulfate [Ventolin HFA] 90 mcg/actuation Hfa Aerosol Inhaler 2 puff INHALATION Q4H PRN (Reason: Dyspnea) RF: 0 fluticasone propionate [Flonase Allergy Relief] 50 mcg/actuation [place],Suspension 2 spray INTRANASAL DAILY RF: 0 loratadine 10 mg tablet 10 mg PO DAILY RF: 0 Lantus Solostar U-100 Insulin 100 unit/mL (3 mL) insulin pen 30 unit SUBCUT HS RF: 0 Victoza 3-Sharath 0.6 mg/0.1 mL (18 mg/3 mL) pen injector 1.8 mg SUBCUT DAILY RF: 0 Changed furosemide 40 mg tablet 40 mg PO DAILY Qty: 0 RF: 0 Discontinued lisinopril 40 mg tablet 40 mg PO DAILY RF: 0 Discharge Orders: Discharge Order (Routine); Ordered 05/08/20 Ordered By: Josy Cha Admission Data Admit Date/Time: 05/05/20 15:22 Attending Provider: Josy Cha Admit Provider: Josy Cha Primary Care Provider: Silver Ramos V. Other Providers: Josy Cha Other Interventions: Discharge Summary Assessment (RN) Last Done: 05/08/20 17:19
== END 2020-05-08 18:00 | disposition home or self-care (01) | DRG 637 ==
LOC: ED 12:15 → 2W 15:22